=== PATIENT | female | born 2000 | race Caucasian/White ===

== ENCOUNTER 2020-03-12 10:30 | Emergency (ER) | payer MEDICAID, SELFPAY ==
--- NOTE | ~2020-03-12 | XR_ITS ---
EXAMINATION: XR chest 2V 03/12/2020 10:57 INDICATION: Chest pain, shortness of breath and dizziness PROCEDURE: 2 view chest COMPARISON: No prior studies for comparison. FINDINGS: The lungs are clear. The cardiomediastinal silhouette is within normal limits. There are no pleural effusions. There is no pneumothorax suspected. IMPRESSION: 1: NO ACUTE CARDIOPULMONARY DISEASE. Reviewed, dictated and finalized at location A.
[2020-03-12 10:30] VITALS: BP 123/87; PULSE 76; RESP 20; TEMP 36.1; O2SAT 100
--- NOTE | 2020-03-12 10:38 | ECG_ITS ---
Measurements Intervals [place] Rate: 77 P: 77 HI: 165 QRS: 73 QRSD: 95 T: 80 QT: 369 QTc: 418 Interpretive Statements SINUS RHYTHM NORMAL ECG Electronically Signed On 03-12-2020 11:14:23 CDT by Torin Miles D.O.
--- NOTE | 2020-03-12 10:48 | PC.NURSE ---
report to jovani warren.
[2020-03-12] MEDS: ONDANSETRON HCL ODT 4 MG TABLET PO (11:03)
[2020-03-12 11:06] LABS: Hematocrit 40.1 % (35.0-49.0); Hemoglobin 13.8 g/dL (12.0-15.0); Mean Corpuscular HGB Conc 34.4 g/dL (32.0-36.0); Mean Corpuscular Hemoglobin 30.1 pg (27.0-31.0); Mean Corpuscular Volume 87.4 fL (78.0-102.0); Mean Platelet Volume 9.4 fl (9.2-11.8); Platelet Count Result 332 K/mm3 (150-420); Red Blood Count 4.59 M/mm3 (4.20-5.40); Red Cell Distribution Width 11.7 % (11.6-14.4); White Blood Count 8.1 K/mm3 (4.8-10.8)
[2020-03-12 11:20] LABS: D Dimer 0.34 mg/L (0.19-0.50)
[2020-03-12 11:24] LABS: Alanine Aminotransferase 33 U/L (14-59); Albumin Level 4.1 g/dL (3.4-5.0); Alkaline Phosphatase 55 U/L (46-116); Anion Gap 8 mmol/L (8-16); Aspartate Amino Transferase 19 U/L (15-37); Bilirubin,Total 0.4 mg/dL (0.00-1.00); Blood Urea Nitrogen 9 mg/dL (7-18); Calcium 9.1 mg/dL (8.5-10.1); Carbon Dioxide 27 mmol/L (21-32); Chloride 102 mmol/L (98-108); Estimated CRCL calculation 130 ml/min; Estimated Glomerular Filt Rate > 60; Glucose 82 mg/dL (70-99); Osmolality Calculated 281 mOsm/kg (285-295); Sodium 137 mmol/L (136-145); Total Protein 7.9 g/dL (6.4-8.2)
[2020-03-12 11:27] LABS: Troponin I < 0.02 ng/mL (0.00-0.056)
--- NOTE | 2020-03-12 11:30 | ED.CHESTPAIN ---
HPI - Chest Pain General Chief Complaint: Chest Pain Stated Complaint: chest pain Source: patient Limitations: no limitations History of Present Illness HPI narrative: this is a 19-year-old female presents with some chest pain she describes as a dull a that has been off and on for 2 to 3 years and has intensified over the last a couple days, she does not describe it is pressure more facet aching that is reproducible, with no shortness of breath no diaphoresis does have nausea with no vomiting no abdominal pain no shortness of breath no diarrhea constipation no fever or chills. Patient does have a history of a vaping, and occasional marijuana use. Denies any illicit drug use or alcohol use. Has no family history significant for cardiovascular disease. MD complaint: chest discomfort Onset (ago): year(s) Timing of current episode: episodic Prior episodes: No Pain radiation: none Severity: moderate Pain scale (0-10): 4 Quality: dull Relieving factors: nothing Exacerbating factors: nothing Related Data Allergies Allergy/AdvReac Type Severity Reaction Status Date / Time amoxicillin [From Amoxil] AdvReac Unknown Verified 03/12/20 10:38 Penicillins AdvReac Unknown Verified 03/12/20 10:38 Review of Systems Review of Systems: All systems reviewed & are unremarkable except as noted in HPI and below PMFSH Past Medical History Medical History Depression Exam Const: General: no acute distress and alert Orientation/consciousness: patient oriented x3 HENMT: Head: normal to inspection Eyes: Conjunctivae: conjunctivae normal Pupils: Equal, round and reactive pupils present Neck: Neck: normal visual inspection, no lymphadenopathy and no meningeal signs Chest: Chest palpation & inspection: normal inspection of the chest Other: reproducible chest pain with palpation Resp: Effort & Inspection: normal respiratory effort Auscultation: clear to auscultation bilaterally Cardio: Rate: regular rate Rhythm: regular rhythm GI: Auscultation: normal bowel sounds : General: Yes no CVA tenderness Neuro: General: patient oriented x3, moves all extremities, no meningeal signs and no focal motor deficits Extrem: General: normal to inspection and no pedal edema Psych: Mental Status: mental status grossly normal Affect: Anxious affect present Course Course Emergency Course: reassessment of patient chest pain with mild improvement with no medication, nausea is improved with some ODT Zofran. Vital Signs Vital signs: Vital Signs Temperature 36.1 C L 03/12/20 10:30 Pulse Rate 76 03/12/20 10:30 Respiratory Rate 03/12/20 10:30 Blood Pressure 123/87 03/12/20 10:30 Pulse Oximetry 100 03/12/20 10:30 Temperature 36.1 C L 03/12/20 10:30 Pulse Rate 76 03/12/20 10:30 Respiratory Rate 03/12/20 10:30 Blood Pressure 123/87 03/12/20 10:30 Pulse Oximetry 100 03/12/20 10:30 MDM - Chest Pain Lab Data Attestation: I reviewed the patient's lab results. Result diagrams: 03/12/20 11:01 03/12/20 11:01 Labs: Lab Results 03/12/20 03/12/20 03/12/20 Range/Units 11:01 11:01 11:01 WBC 8.1 (4.8-10.8) K/mm3 RBC 4.59 (4.20-5.40) M/mm3 Hgb 13.8 (12.0-15.0) g/dL Hct 40.1 (35.0-49.0) % MCV 87.4 (78.0-102.0) fL MCH 30.1 (27.0-31.0) pg MCHC 34.4 (32.0-36.0) g/dL RDW 11.7 (11.6-14.4) % Plt Count 332 (150-420) K/mm3 MPV 9.4 (9.2-11.8) fl D-Dimer 0.34 (0.19-0.50) mg/L Sodium 137 (136-145) mmol/L Potassium 4.0 (3.5-5.1) mmol/L Chloride 102 (98-108) mmol/L Carbon Dioxide 27 (21-32) mmol/L Anion Gap 8 (8-16) mmol/L BUN 9 (7-18) mg/dL Creatinine 0.59 (0.55-1.02) mg/dL Estim Creat Clear Calc 130 ml/min Estimated GFR > 60 (59 - ) Glucose 82 (70-99) mg/dL Calculated Osmolality 281 L (285-295) mOsm/kg Calcium 9.1 (8.5
[2020-03-12 11:40] VITALS: BP 112/69; PULSE 83; O2SAT 99
== END 2020-03-12 11:40 | disposition home or self-care (01) ==
PROVIDERS: Emergency Provider Emergency Medicine; PCP Nurse Practitioner Family
DX: M94.0 Chondrocostal junction syndrome [Tietze] (principal)
CPT/HCPCS: 36415; 71046; 80053; 84484; 85027; 85380; 93005; 99284; A9270

== ENCOUNTER 2021-06-03 12:11 | Outpatient (CLI) | payer OTHER, SELFPAY ==
[2021-06-03 12:50] LABS: SARS-CoV-2 Ag Negative (Negative)
== END 2021-06-03 12:12 | disposition home or self-care (01) ==
LOC: CHSLAB 12:22
PROVIDERS: PCP Family Medicine; Visit Provider Emergency Medicine
DX: B34.9 Viral infection, unspecified (principal); Z20.822 Contact with and (suspected) exposure to COVID-19
CPT/HCPCS: 87426; C9803

== ENCOUNTER 2021-06-29 09:46 | Outpatient (CLI) | payer OTHER, SELFPAY ==
[2021-06-29 15:29] LABS: SARS-CoV-2 Ag Negative (Negative)
== END 2021-06-29 09:47 | disposition home or self-care (01) ==
LOC: CHSLAB 09:49
PROVIDERS: PCP Family Medicine; Visit Provider Emergency Medicine
DX: B34.9 Viral infection, unspecified (principal); Z20.822 Contact with and (suspected) exposure to COVID-19
CPT/HCPCS: 87426; C9803

== ENCOUNTER 2022-04-18 20:27 | Emergency (ER) | payer OTHER, SELFPAY ==
--- NOTE | ~2022-04-18 | XR_ITS ---
EXAM: XR hand LT min 3V, XR forearm LT 2V DATE: 04/18/2022 21:34 HISTORY: pain, swelling . COMPARISON: None available. FINDINGS: Normal mineralization. No fracture or dislocation. No lytic or blastic lesion. Joint space s are maintained. No erosion or periosteal change. Soft tissues within normal limits. IMPRESSION: No acute osseous finding in the left hand or forearm. Reviewed, dictated and finalized at location K. IMPRESSION: No acute osseous finding in the left hand or forearm.
[2022-04-18 20:35] VITALS: BP 141/100; PULSE 105; RESP 20; TEMP 37.2; O2SAT 98
--- NOTE | 2022-04-18 21:18 | ED.UPPEXIN ---
HPI - Extremity Injury (Upper) General Chief Complaint: Extremity Injury, Upper Stated Complaint: left wrist pain Time Seen by Provider: 04/18/22 20:31 Source: patient and RN notes reviewed Mode of arrival: ambulatory Limitations: no limitations History of Present Illness HPI narrative: Patient left hand hit a hard object akilah toscano MD complaint: injury to: left, forearm and hand Onset (ago): hour(s) (2) Other Extremity Injury: Left: hand and forearm Other injuries: none Place: home Severity: mild Severity scale (1-10): 3 Relieving factors: none Exacerbating factors: movement of extremity Context: direct blow and injury Associated symptoms: denies other symptoms Treatments prior to arrival: cold therapy Related Data Home Medications Medication Instructions Recorded Confirmed azelastine 137 mcg (0.1 %) nasal 137 mcg intranasal DIRECTED 04/18/22 04/18/22 spray aerosol cetirizine 10 mg tablet 10 mg PO DIRECTED 04/18/22 04/18/22 cyclobenzaprine 10 mg tablet 10 mg PO DIRECTED 04/18/22 04/18/22 fluticasone propionate 50 50 mcg intranasal DIRECTED 04/18/22 04/18/22 mcg/actuation nasal spray,suspension Allergies Allergy/AdvReac Type Severity Reaction Status Date / Time amoxicillin [From Amoxil] AdvReac Unknown Verified 04/18/22 20:59 Penicillins AdvReac Unknown Verified 04/18/22 20:59 Review of Systems Review of Systems: All systems reviewed & are unremarkable except as noted in HPI and below Constitutional: Constitutional: Reports no additional constitutional complaints Eyes: Eyes: Reports no additional eye complaints ENT: Reports system reviewed and no additional complaints, except as documented Cardiovascular: Cardiovascular: Reports no additional cardiovascular complaints Respiratory: Respiratory: Reports no additional respiratory complaints Gastrointestinal: Gastrointestinal: Reports no additional gastrointestinal complaints Genitourinary: Genitourinary: Reports no additional female genitourinary complaints Musculoskeletal: Musculoskeletal: Reports no additional musculoskeletal complaints and Reports arthralgias Integumentary/Breasts: Skin/Breast: Reports system reviewed and no additional complaints, except as docu Neurologic: Reports system reviewed and no additional complaints, except as documented Psychiatric: Psychiatric: Reports no additional psychiatric complaints Endocrine: Endocrine: Reports no additional endocrine complaints Hematologic/Lymphatic: Hematologic/Lymphatic: Reports no additional hematologic/lymphatic complaints Allergic/Immunologic: Allergic/Immunologic: Reports no additional allergic/immunologic complaints PMFSH Past Medical History Medical History (Updated 04/18/22 @ 21:48 by Kali Biswas MD) Contusion of left hand Depression Finger sprain Exam Const: General: healthy appearing, no acute distress and well nourished Nutritional Appearance: well nourished Orientation/consciousness: patient oriented x3 Limitations: no limitations HENMT: Head: normal to inspection Ears: external ears normal, TM's normal bilaterally and EAC's normal Face/Nose/Sinus: Normal external nose present, Normal nares present, normal facial exam and sinuses nontender Face and sinus: normal facial exam and sinuses nontender Mouth: Yes Normal oral and palatal mucosa present and Yes moist mucous membranes Teeth and gingiva: dentition normal Throat: posterior oropharynx normal Eyes: Conjunctivae: conjunctivae normal Pupils: Equal, round and reactive pupils present EOM: EOMs intact bilaterally Neck: Neck: normal visual inspection, no lymphadenopathy and no meningeal signs Chest: Chest palpation & inspection: normal inspection of the chest Resp: Effort & Inspection: normal respiratory effort Auscultation: clear to auscultation bilaterally Cardio: Rate: regular rate Rhythm: regular rhythm GI: GI Palp: Yes Soft to palpation and No Tenderness to palpation presen
[2022-04-18] MEDS: ACETAMINOPHEN 325 MG TABLET 650 MG PO (21:36)
[2022-04-18 22:10] VITALS: BP 135/85; PULSE 89; RESP 18; TEMP 37; O2SAT 97
== END 2022-04-18 22:13 | disposition home or self-care (01) ==
PROVIDERS: Emergency Provider Emergency Medicine; PCP Family Medicine
DX: S60.222A Contusion of left hand, initial encounter (principal); S63.619A Unspecified sprain of unspecified finger, initial encounter; W22.8XXA Striking against or struck by other objects, initial encounter
CPT/HCPCS: 29130; 73090; 73130; 73140; A4565; A9270

== ENCOUNTER 2022-11-30 09:00 | Emergency (ER) | payer OTHER, SELFPAY ==
--- NOTE | ~2022-11-30 | CT_ITS ---
EXAMINATION: CT brain wo con INDICATION: Dizziness, unsteady gait COMPARISON: None TECHNIQUE: Standard unenhanced head CT. The dose-length product (DLP) was 605 mGy-cm. The mA was adju sted according to patient size. Iterative reconstruction technique was employed. FINDINGS: There is no intracranial hemorrhage, acute infarction, or abnormal mass lesion. The ventric les are normal. There is no abnormal mass effect or midline shift. The reed-white matter differentiat ion is normal. The basal cisterns are patent. The orbits are normal. The paranasal sinuses, mastoids and calvarium are normal. IMPRESSION: 1. No acute intracranial abnormality. Reviewed, dictated and finalized at location A.
[2022-12-01 15:47] LABS: Add Urine Microscopic? YES; Appearance Urine Clear (Clear); Bilirubin Urine Negative (Negative); Blood Urine 3+ (Negative); Color Urine Yellow (Yellow); Glucose Urine UA Negative (Negative); Ketones Urine Negative (Negative); Leukocyte Esterase Ur Negative LEU/UL (Negative); Nitrate Urine Negative (Negative); Protein Urine 1+ (Negative); Urobilinogen Urine 0.2 mg/dL (0.2-1.0)
[2022-12-01 15:48] LABS: Bacteria Urine 1+ /hpf; Squamous Epithelial Cell Urine Moderate /hpf (Few); WBC Urine 0-3 /hpf (0-3)
[2022-12-01 15:49] LABS: Pregnancy On Board Control Positive; Urine Pregnancy Test Negative
[2022-12-01 15:52] LABS: Alanine Aminotransferase 30 U/L (14-59); Anion Gap 8 mmol/L (8-16); Aspartate Amino Transferase 16 U/L (15-37); Bilirubin,Total 0.5 mg/dL (0.00-1.00); Blood Urea Nitrogen 8 mg/dL (7-18); Calcium 9.2 mg/dL (8.5-10.1); Carbon Dioxide 29 mmol/L (21-32); Chloride 103 mmol/L (98-108); Creatine Kinase 118 U/L (26-192); Estimated Glomerular Filt Rate > 60; Glucose 83 mg/dL (70-99); Osmolality Calculated 287 mOsm/kg (285-295); Potassium 3.7 mmol/L (3.5-5.1); Sodium 140 mmol/L (136-145); Total Protein 7.7 g/dL (6.4-8.2); Troponin I < 4.0 ng/L (0.00-60.4)
[2022-12-01 15:53] LABS: Albumin Level 3.9 g/dL (3.4-5.0); Alkaline Phosphatase 64 U/L (46-116)
[2022-12-01 15:56] LABS: Basophils Absolute Auto 0.05 K/mm3 (0.00-0.10); Basophils Percent Auto 0.8 % (0.0-1.0); Eosinophils Absolute Auto 0.09 K/mm3 (0.02-0.50); Eosinophils Percent Auto 1.5 % (1.0-6.0); Hematocrit 38.8 % (35.0-49.0); Hemoglobin 13.2 g/dL (12.0-15.0); Immature Granulocyte Absolute 0.02 K/mm3 (0.00-0.00); Immature Granulocyte Percent A 0.3 % (0.0-0.0); Lymphocytes Absolute Auto 1.98 K/mm3 (1.10-4.50); Lymphocytes Percent Auto 32.9 % (18.0-42.0); Mean Corpuscular Hemoglobin 29.8 pg (27.0-31.0); Mean Corpuscular Volume 87.6 fL (78.0-102.0); Monocytes Absolute Auto 0.42 K/mm3 (0.10-0.90); Neutrophils Absolute Auto 3.5 K/mm3 (1.7-7.2); Neutrophils Percent Auto 57.5 % (50.0-70.0); Platelet Count Result 345 K/mm3 (150-420); Red Blood Count 4.43 M/mm3 (4.20-5.40); Red Cell Distribution Width 11.9 % (11.6-14.4)
== END 2022-11-30 12:15 | disposition home or self-care (01) ==
LOC: CHSED 16:02
PROVIDERS: Emergency Provider Internal Medicine Critical Care Medicine; PCP Emergency Medicine
DX: R42 Dizziness and giddiness (principal); R51.9 Headache, unspecified; Z79.82 Long term (current) use of aspirin; Z86.73 Personal history of transient ischemic attack (TIA), and cerebral infarction without residual deficits
CPT/HCPCS: 36415; 70450; 80053; 81001; 81025; 82550; 82553; 84484; 85025; 99284